=== PATIENT | female | born 1940 | race American Indian/Alaskan Native ===

== ENCOUNTER 2018-09-19 13:41 | Outpatient (CLI) | payer MEDICARE, BC | END 2018-09-19 13:42 | disposition home or self-care (01) | LOC: C.MAMMO 13:41 | DX: Z12.31 Encounter for screening mammogram for malignant neoplasm of breast (principal) ==

== ENCOUNTER 2018-09-29 09:31 | Outpatient (CLI) | payer MEDICARE, BC | END 2018-09-29 09:32 | disposition home or self-care (01) | LOC: C.USIC 09:32 ==